=== PATIENT | male | born 1975 | race Caucasian/White ===

== ENCOUNTER 2025-06-21 10:29 | Emergency (ER) | payer MEDICAID, OTHER ==
[~2025-06-21] VITALS: Ht 238.8 cm; Wt 118.0 kg
--- NOTE | 2025-06-21 11:49 | ED.PDOC ---
Juan. trauma (HPI) HPI Comments HPI: This is a 49 year-old male who presents to the ED via wheelchair with a chief complaint of bilateral heel pain s/p fall off 10ft roof at 1700 yesterday. Patient additionally presents with an abrasion to the R gaffney. Patient states he is currently unable to ambulate due to the pain. Patient reports some allevi ation via Ibuprofen prior to ED visit. Patient has no further complaints at this time and otherwise denies head trauma, LOC, back pain, abdominal pain, leg pain, or headache. Initial Vitals (Deferred) BP: 112/61 HR: 92 RR: 18 O2: 96% RA Temp: 97.8 F Past Medical History: Hyperlipidemia Past Surgical History: None Social History: ETOH, MJ use Allergies: NKA tk: fall HPI: Poor Historian. REVIEW OF SYSTEMS: CONSTITUTIONAL: Denies acute: fever, diaphoresis, chills, generalized weakness. HEAD: Denies acute: headache, photophobia Eyes: Denies acute: Double vision, vision loss, eye pain, eye discharge. EARS: Denies acute: tinnitus, hearing loss, ear discharge, ear pain, THROAT: Denies acute: sore throat, swelling, difficulty swallowing , pain with swallowing, change in voice. NECK: Denies acute: neck pain, neck swelling, stiff neck. HEART: Denies acute : chest pain, palpitations, LUNGS: Denies acute: SOB, wheezing, cough, hemoptysis ABDOMEN: Denies acute: abdominal pain, Nausea, Vomiting, diarrhea, melena , hematemesis, hematochezia SKIN: Denies acute: rash, redness, lesions, itchiness. EXTREMITIES: Denies acute: calf pain, numbness, tingling, weakness, Denies acute: Low back pain. Neuro: Denies acute: focal neurological deficit, motor or sensory focal neurological deficit, tremors, seizure like activity, confusion, dizziness, change in mental status, loss of bowel or bladder function, cauda equina like symptoms. : Denies acute: dysuria, hematuria, flank pain, increase in urinary frequency. PSYCH: Denies acute: hallucination, suicidal ideation, homicidal ideation. PHYSICAL EXAM: General: ----apmw-[id number]----acute distress, awake and alert. Head: normocephalic, atraumatic. Neck: supple, trachea is midline, no swelling. Cervical spine: Palpation of the posterior midline of the cervical spine reveals no focal swelling, erythema, focal tenderness to palpation. Patient has normal range of motion. Palpation of the remainder of the thoracic and lumbar spine reveals no focal tenderness to palpation or swelling. Throat: Normal phonation. Eyes:, no erythema, no purulent discharge, no proptosis, no icterus. Heart: regular rate, regular rhythm, no significant murmur appreciated. Lungs: no apparent respiratory distress, Able to speak in full sentences. No wheezing, no rhonchi, no crackles. No stridors Clear to auscultation bilaterally. Abdomen: non tender to palpation, non distended, soft, no guarding, no rebound, + bowel sounds. Neuro: Awake, Alert, oriented to name, self, situation, follows commands GCS=15. Speech is normal. Skin: no petechia, no purpura, no cyanosis, non-pale, not jaundice. Lower extremities: --no - Pitting edema no deformity, no focal swelling, no calf TTP. Patient has focal tenderness to palpation over bilateral heels. Patient is neurovascularly intact in bilateral lower extremity. Makes eye contact. moves all four extremities. Face: no apparent facial droop. Pedal pulses are palpable. Bilaterally. No nuchal rigidity, Kernig's sign, Brudzinski's sign, no meningeal signs. ED COURSE: DISCLAIMER: This medical document was created using an electronic medical record system with voice recognition software and computerized dictation system. Although this document has been carefully reviewed, there might still be some phonetic and typographical errors. Occasional wrong-word or "sound-alike" substitutions may have occurred due to the inherent limitations of voice recognition software. These areas are purely typographical due to imperfections of the software programs and do not reflect any compromise in the patient's medical care. Please read the chart carefully and recognize, using context, where these substitutions have occurred. Chief Complaint: Fall Injury Time Seen by MD: 11:46 Reviewed notes: Nurses Notes, Medications, Allergies Information Source: Patient Mode of Arrival: EMS Severity: Moderate Timing: Hours Duration: Since onset Prehospital treatment: None Location: Other (bilateral heel pain ) Mechanism: Fall Associated signs and symtoms: Other (bilateral heel pain ) Was a procedure done? Was a procedure done?: No Differential Diagnosis Multiple Trauma: Closed Head Injury, Cardiac Injury, Fractures, Intraabdominal Injury, Pneumothorax, Cerebral Contusion, Pulmonary Contusion, Spine Injury, Tracheal Injury, Urological Injury, Vascular Injury, Abrasions, Contusion, Foreign Body, Hematoma, Laceration, Encephalopathy, Other (Dislocation, ligamental injury, Achillis tendon tear) Neck Injury: Cervical Muscle Spasm, Cervical Sprain, Cervical Strain, Cervical Fracture, Spinal Cord Injury X-Ray, Labs, Meds, VS Vital Signs Date Time Temp Pulse Resp B/P (MAP) Pulse Ox O2 Delivery O2 Flow Rate FiO2 06/21/25 14:21 99 Room Air* 0 21 06/21/25 14:20 98.3 92 16 133/51 (78) 99 98.3 06/21/25 10:41 97.8 92 18 112/[address] [address] Ph: [phone] DIAGNOSTIC IMAGING Diagnostic Imaging Report : [id number] Signed PATIENT: OSMAR DAWSON ACCT: [id number] UNIT: [id number] : 1975 LOC: ER ROOM / BED: / AGE / SEX: 49 / M ADM STATUS: REG ER SERVICE 1147 ORDERING PHYSICIAN: CECE MURPHY DO PROCEDURE(s): LANK2 - L ANKLE 2 VIEW XRAY REASON: fall ORDER NUMBER(s): [id number], ACCESSION NUMBER(s): [id number] EXAM: XY L ANKLE 2 VIEW XRAY REASON FOR EXAM: fall TECHNIQUE: AP and lateral views of the left ankle are submitted for review. COMPARISON: XY R ANKLE 2 VIEW XRAY on DOS: 06/21/25 FINDINGS: The bones demonstrate grossly normal mineralization. There is no acute fracture or dislocation. The soft tissues are within normal limits. IMPRESSION: No acute fracture or dislocation. [address] [address] Ph: [phone] DIAGNOSTIC IMAGING Diagnostic Imaging Report : [id number] Signed PATIENT: OSMAR DAWSON ACCT: [id number] UNIT: [id number] : 1975 LOC: ER ROOM / BED: / AGE / SEX: 49 / M ADM STATUS: REG ER SERVICE 1147 ORDERING PHYSICIAN: CECE MURPHY DO PROCEDURE(s): RANK2 - R ANKLE 2 VIEW XRAY REASON: fall ORDER NUMBER(s): [id number], ACCESSION NUMBER(s): [id number] EXAM: XY R ANKLE 2 VIEW XRAY REASON FOR EXAM: fall TECHNIQUE: AP and lateral views of the right ankle are submitted for review. COMPARISON: XY L ANKLE 2 VIEW XRAY on DOS: 06/21/25 FINDINGS: The bones demonstrate grossly normal mineralization. There is no acute fracture or dislocation. There is a small dorsal calcaneal spur. The soft tissues are within normal limits. IMPRESSION: No acute fracture or dislocation. [place] [address] Ph: [phone] DIAGNOSTIC IMAGING Diagnostic Imaging Report : [id number] Signed PATIENT: OSMAR DAWSON ACCT: [id number] UNIT: [id number] : 1975 LOC: ER ROOM / BED: / AGE / SEX: 49 / M ADM STATUS: REG ER SERVICE 1147 ORDERING PHYSICIAN: CECE MURPHY DO PROCEDURE(s): LANK2 - L ANKLE 2 VIEW XRAY REASON: fall ORDER NUMBER(s): [id number], ACCESSION NUMBER(s): [id number] EXAM: XY L ANKLE 2 VIEW XRAY REASON FOR EXAM: fall TECHNIQUE: AP and lateral views of the left ankle are submitted for review. COMPARISON: XY R ANKLE 2 VIEW XRAY on DOS: 06/21/25 FINDINGS: The bones demonstrate grossly normal mineralization. There is no acute fracture or dislocation. The soft tissues are within normal limits. IMPRESSION: No acute fracture or dislocation. ATED BY: JUAN MURRAY MD DICTATED DATE/TIME: 06/21/25 1247 SIGNED BY: JUAN MURRAY MD SIGNED DATE/TIME: 06/21/25 1247 CC: Images Reviewed?: Images reviewed and evaluated by me Time of 1ST Reevaluation: 12:28 Reevaluation 1ST: Unchanged Patient Education/Counseling: Diagnosis, Treatment Family Education/Counseling: No Family Present Comments MDM: patient presented with the above HPI.--bilateral heel pain from a fall----workup was initiated. patient was found with the above mentioned diagnosis. the following medications were ordered: please refer to order lists of meds and tests obtained by myself Dr. Murphy. Patient ED course and VS have been stabilized. Patient has been reassessed in the ED and remained in a stable condition. Pertinent incidental findings were discussed with the patient and/or family. Patient/family voices understanding and is agreeable with plan. Patient has been observed in the ED adequate length of time to insure improvement/stability. Escalation of care considered: Consideration of escalation to observation or admission Patient was DISCHARGED home in a stable condition. All the reports of any imaging studies that were ordered by myself were reviewed by myself. Departure 1 Departure Time of Disposition: 12:58 Impression: Primary Impression: Fall Additional Impression: Heel pain, bilateral Disposition: 01 HOME / SELF CARE / HOMELESS Condition: Stable Additional Instructions: Additional instructions: Please read all instructions provided in this packet carefully. You MUST follow-up with your primary care/family doctor in 1 to 2 days. If you are unable to see your primary care/family doctor, please return to our emergency room for re-assessment and re-evaluation in 1 to 2 days. Return to the emergency room here in our facility or to the nearest ER PATTI if your symptoms change or worsen. CONSULTATIONS: you MUST Follow-up for consultation as soon as possible with: -orthopedic doctor/comb winder in 1-2 days. Please call for appointment You MUST call the consultants office yourself to make an appointment. You may need to arrange that through your insurance and/or your primary/family doctor. If you are unable to see the incident response consultant in 1 to 2 days, you must return to our emergency room (or any other ER of your choice) for re-assessment and re- evaluation. Adequate fluid hydration. Although you have been discharged from the Emergency Department, this does not mean that you have a "clean bill of health". No definitive diagnosis for your symptoms has been made today. It is possible that you are in the process of developing a serious illness. This is why you must return to the ED without fail if any new or worsening symptoms develop. Use rwty-grv-lyhbint Tylenol ibuprofen with food for pain control. Below is a copy of your radiological report for follow up: [address] [address] Ph: [phone] DIAGNOSTIC IMAGING Diagnostic Imaging Report : [id number] Signed PATIENT: OSMAR DAWSON ACCT: [id number] UNIT: [id number] : 1975 LOC: ER ROOM / BED: / AGE / SEX: 49 / M ADM STATUS: REG ER SERVICE 1147 ORDERING PHYSICIAN: CECE MURPHY DO PROCEDURE(s): LANK2 - L ANKLE 2 VIEW XRAY REASON: fall ORDER NUMBER(s): [id number], ACCESSION NUMBER(s): [id number] EXAM: XY L ANKLE 2 VIEW XRAY REASON FOR EXAM: fall TECHNIQUE: AP and lateral views of the left ankle are submitted for review. COMPARISON: XY R ANKLE 2 VIEW XRAY on DOS: 06/21/25 FINDINGS: The bones demonstrate grossly normal mineralization. There is no acute fracture or dislocation. The soft tissues are within normal limits. IMPRESSION: No acute fracture or dislocation. [address] [address] Ph: [phone] DIAGNOSTIC IMAGING Diagnostic Imaging Report : [id number] Signed PATIENT: OSMAR DAWSON ACCT: [id number] UNIT: [id number] : 1975 LOC: ER ROOM / BED: / AGE / SEX: 49 / M ADM STATUS: REG ER SERVICE 1147 ORDERING PHYSICIAN: CECE MURPHY DO PROCEDURE(s): RANK2 - R ANKLE 2 VIEW XRAY REASON: fall ORDER NUMBER(s): [id number], ACCESSION NUMBER(s): [id number] EXAM: XY R ANKLE 2 VIEW XRAY REASON FOR EXAM: fall TECHNIQUE: AP and lateral views of the right ankle are submitted for review. COMPARISON: XY L ANKLE 2 VIEW XRAY on DOS: 06/21/25 FINDINGS: The bones demonstrate grossly normal mineralization. There is no acute fracture or dislocation. There is a small dorsal calcaneal spur. The soft tissues are within normal limits. IMPRESSION: No acute fracture or dislocation. Discharged With: Self Critical Care Note Critical Care Time?: No I personally scribed for CECE MURPHY DO ([email or web address]) on 06/21/25 at 11:49. Electronically submitted by Leida Crews ([employer]). I personally scribed for CECE MURPHY J DO ([email or web address]) on 06/21/25 at 11:54. Electronically submitted by Leida Crews ([employer]). I personally scribed for CECE MURPHY DO (DVFARMI) on 06/21/25 at 13:06. Electronically submitted by Leida Crews ([employer]). I personally scribed for CECE MURPHY J DO ([email or web address]) on 06/21/25 at 13:07. Electronically submitted by Leida Crews ([employer]). I personally scribed for CECE MURPHY J DO ([email or web address]) on 06/21/25 at 13:57. Electronically submitted by Leida Crews ([employer]). I personally scribed for CECE MURPHY J DO ([email or web address]) on 06/21/25 at 14:04. Electronically submitted by Kim Witt ([facility]). CECE MURPHY DO Jun 21, 2025 11:49
--- NOTE | 2025-06-21 12:50 | DVH ---
EXAM: XY L ANKLE 2 VIEW XRAY REASON FOR EXAM: fall TECHNIQUE: AP and lateral views of the left ankle are submitted for review. COMPARISON: XY R ANKLE 2 VIEW XRAY on DOS: 06/21/25 FINDINGS: The bones demonstrate grossly normal mineralization. There is no acute fracture or disloca tion. The soft tissues are within normal limits. IMPRESSION: No acute fracture or dislocation.
--- NOTE | 2025-06-21 12:51 | DVH ---
EXAM: XY R ANKLE 2 VIEW XRAY REASON FOR EXAM: fall TECHNIQUE: AP and lateral views of the right ankle are submitted for review. COMPARISON: XY L ANKLE 2 VIEW XRAY on DOS: 06/21/25 FINDINGS: The bones demonstrate grossly normal mineralization. There is no acute fracture or dislocat ion. There is a small dorsal calcaneal spur. The soft tissues are within normal limits. IMPRESSION: No acute fracture or dislocation.
[2025-06-21 14:20] VITALS: BP 133/51; PULSE 92; RESP 16; TEMP 98.3
[2025-06-21 14:21] VITALS: O2SAT 99
== END 2025-06-21 14:01 | disposition home or self-care (01) ==
LOC: ER 10:29 → EDBD 10:29 → ER 14:01
DX: S80.811A Abrasion, right lower leg, initial encounter (principal); M79.672 Pain in left foot; M79.671 Pain in right foot; M25.572 Pain in left ankle and joints of left foot; E78.5 Hyperlipidemia, unspecified; M25.571 Pain in right ankle and joints of right foot; W13.2XXA Fall from, out of or through roof, initial encounter; Y93.89 Activity, other specified; Y92.89 Other specified places as the place of occurrence of the external cause; Y99.8 Other external cause status
CPT/HCPCS: 73600